=== PATIENT | female | born 1990 ===

== ENCOUNTER 2022-07-16 17:54 | Emergency (ER) | payer SELFPAY ==
[2022-07-16 18:28] VITALS: BP 128/79
[2022-07-16] MEDS: traMADol 50 MG TAB PO ONE ×2 (21:00→21:03)
[2022-07-16] MEDS ORDERED: ACETAMINOPHEN 500 MG TAB PO ONE (21:02)
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
== END 2022-07-17 00:06 | disposition home or self-care (01) ==
LOC: ED 17:54
DX: S16.1XXA Strain of muscle, fascia and tendon at neck level, initial encounter (principal); S39.012A Strain of muscle, fascia and tendon of lower back, initial encounter; V89.2XXA Person injured in unspecified motor-vehicle accident, traffic, initial encounter; Y93.89 Activity, other specified; Y92.89 Other specified places as the place of occurrence of the external cause; Y99.8 Other external cause status
CPT/HCPCS: 70450; 72100; 72125; 99284